=== PATIENT | female | born 1985 | race Caucasian/White ===

== ENCOUNTER 2023-06-11 18:53 | Emergency (ER) | payer BC, SELFPAY ==
[2023-06-11 19:03] VITALS: BP 122/78; PULSE 88; RESP 18; TEMP 36.6; O2SAT 98; BMI 22.7
[2023-06-11] MEDS: PROPARACAINE 0.5% OPHTH SOL 1 DROPS EYE-RIGHT (19:10)
--- NOTE | 2023-06-11 19:56 | ED_ITS ---
HPI - Eye Problem General Chief complaint: Eye Problems Stated complaint: Hit in the eye with a toy Time Seen by Provider: 06/11/23 19:13 Source: patient Mode of arrival: Ambulatory Limitations: no limitations History of Present Illness HPI Narrative: 37-year-old female with no reported medical issues who was hit in the right eye with a toy earlier today. Patient states it was a paper to a that struck her in the eye she did not have time to blink. She immediately had discomfort, states took about 10 minutes for she felt like she could totally open her eye. Was very tearing, she is continued to have discomfort with movement blinking feels gritty. Patient states pain has been slowly improving but not resolved. She denies any other injuries. States her tetanus is up-to-date. Does not wear glasses, contacts, has not had eye in exam is in the past. No prior surgeries to her eyes. She states her tetanus is up-to-date. Patient states no daily prescriptions. No tobacco, no regular alcohol or recreational drugs. She is from [place] but is visiting the area until Tuesday. Related Data Allergies Allergy/AdvReac Type Severity Reaction Status Date / Time No Known Drug Allergies Allergy Verified 06/11/23 19:05 Review of Systems Review of Systems ROS Unobtainable: All systems reviewed & are unremarkable except as noted in HPI and below Patient History Social History Smoking Status: Never smoker Smoking Status: Never smoker Substance Use Type: does not use Exam Narrative Exam Narrative: GEN: well nourished, well appearing female, alert and oriented x 3, patient appears to be in mild distress. HEENT: Atraumatic, pupils are equal round reactive to light, extraocular movements are intact, nares are clear, TMs are clear with no fluid, there is no conjunctival pallor. Throat is clear without any exudates, erythema, tonsillar enlargement or uvular deviation. Visual acuity: right [20/25], left [20/20] without correction. General: no globe trauma Eyelids: normal inspection, eyelids everted for exam on right Conjunctiva/Sclera: normal inspection, except for some mild erythema of the sclera, no ecchymosis. Corneas: normal inspection, examined with fluroscein on right, patient has linear abrasion with some irregularity from the mid pupil out to the 9 o'clock position. No other uptake appreciated. No ulceration. EOM: intact, no palsy/entrapment Pupils: PERRL, normal accomadation, pupil normal Anterior Chambers: normal inspection, no hypema Posterior: normal fundoscopic on bilaterally MSCL: full range of motion, normal gait NEURO:CN 2-12 intact, sensation normal Initial Vital Signs Initial Vital Signs: Vital Signs Temperature 97.9 F 06/11/23 19:03 Pulse Rate 88 06/11/23 19:03 Respiratory Rate 18 06/11/23 19:03 Blood Pressure 122/78 06/11/23 19:03 Pulse Oximetry 98 06/11/23 19:03 Oxygen Delivery Method Room Air 06/11/23 19:03 Course Orders Ordered: Discontinued Medications Fluorescein Sodium (Fluorescein 1 Mg Strip) 1 mg EYE-RIGHT NOW ONE Stop: 06/11/23 19:06 Fluorescein Sodium (Fluorescein 1 Mg Strip) 1 mg EYE-BOTH NOW ONE Stop: 06/11/23 19:14 Polymyxin/Trimethoprim Sulfate (Polymy B/Trimeth Ophth Prepack) 1 bottle MISC DIRECTED ONE Stop: 06/11/23 20:24 Proparacaine HCl (Proparacaine 0.5% Ophth Pura) 1 drops EYE-RIGHT NOW ONE Stop: 06/11/23 19:06 Last Admin: 06/11/23 19:10 Dose: 1 drop Documented By: DARREN Proparacaine HCl (Proparacaine 0.5% Ophth Pura) 1 drops EYE-BOTH NOW ONE Stop: 06/11/23 19:14 Tramadol HCl (Tramadol 50 Mg Prepack) 1 bottle MISC DIRECTED ONE Stop: 06/11/23 20:24 Vital Signs Vital signs: Vital Signs - 8 hr 06/11/23 19:03 06/11/23 20:43 06/11/23 20:44 Temperature 97.9 F Pulse Rate 88 83 83 Respiratory Rate 18 16 16 Blood Pressure 122/78 112/73 112/73 Pulse Oximetry 98 97 97 Oxygen Delivery Method Room Air Room Air Room Air MDM - Eye Problem MDM Narrative Medical decision making narrative: 37-year-old female with injury to her right eye, visual acuity is almost normal 20/25 on the right compared to 20/20 on the left. No prior eye issues. Tetanus is up-to-date. She does have a corneal abrasion we will put on antibiotics, no other ulceration changes to people or other red flag symptoms., give a referral for Ophthalmology to follow up on Tuesday if persistent symptoms and did discuss that if she has even mild symptoms should follow up for recheck. Discharge Plan Departure Patient Disposition: Home Clinical Impression: Corneal abrasion Instructions: DI for Corneal Abrasion Activity Restrictions/Additional Instructions: Follow up with Ophthalmology, there contact is included below. If you call 1st thing Tuesday morning they can follow up with you same day. Let them know you were instructed to follow up from the emergency department. Use antibiotic eyedrops, 1 drop to the right eye every 4 hours while awake (at least 4 times daily) You can take Tylenol up to a 1000 mg every 6 hours and/or ibuprofen up to 600 mg every 6 hours. If in adequate you can take tramadol 1 tablet every 6 hours as needed. This medication can make you sleepy do not drive, perform hazardous activities or make any major decisions while taking it. This medication will make you constipated please take a stool softener once to twice daily until stools are soft and regular. You may use cool compresses to the affected eye. You may feel more comfortable by placing an eye patch over the eye overnight while sleeping. If you have significantly worsening pain, new drainage, purulent drainage, decreased vision, new redness swelling or other changes please return for re- evaluation. Referrals: Zach Bustamante MD [Physician] - Stand Alone Forms: Patient Portal/API
[2023-06-11 20:43] VITALS: BP 112/73; PULSE 83; RESP 16; O2SAT 97
[2023-06-11 20:44] VITALS: BP 112/73; PULSE 83; RESP 16; O2SAT 97
== END 2023-06-11 20:45 | disposition home or self-care (01) ==
PROVIDERS: Emergency Provider Emergency Medicine
DX: S05.01XA Injury of conjunctiva and corneal abrasion without foreign body, right eye, initial encounter (principal); X58.XXXA Exposure to other specified factors, initial encounter
CPT/HCPCS: 99282